=== PATIENT | female | born 1980 | race Caucasian/White ===

== ENCOUNTER 2016-10-07 22:30 | Emergency (ER) | payer OTHER ==
[2016-10-07 23:11] LABS: BASOPHILS 0.2 % (0.0-2.0); HEMATOCRIT 40.3 % (36.0-48.0); HEMOGLOBIN 13.3 g/dL (12-16); IMMATURE GRANULOCYTES 0.3 % (0-5); MCH 25.7 pg (26.0-34.0); MCV 77.9 fL (80.0-100.0); MEAN PLATELET VOLUME 10.8 fL (7.4-10.4); MONOCYTES 6.2 % (2-11); NEUTROPHILS 62.3 % (40-80); PLATELET COUNT 206 10x3/uL (130-400); RBC 5.17 10x6/uL (4.00-5.40); RDW 15.7 % (11.5-14.5); WBC 6.4 10x3/uL (4.8-10.8)
[2016-10-07 23:20] LABS: APTT 26.4 SECONDS (22.8-39.4); INR 1.54 (0.85-1.17); PROTIME 18.4 SECONDS (11.6-15.0)
[2016-10-07 23:21] LABS: D-DIMER-QUANTITATIVE 0.33 ug/mLFEU (0.20-0.54)
[2016-10-07 23:25] LABS: ALBUMIN 3.7 g/dL (3.4-5.0); ALKALINE PHOSPHATASE 110 U/L (46-116); ALT (SGPT) 38 U/L (10-68); BILIRUBIN - TOTAL 0.35 mg/dL (0.2-1.3); CALC OSMOLALITY 286 mosm/kg (275-300); CALCIUM 9.1 mg/dL (8.5-10.1); CHLORIDE - SERUM 99 mmol/L (98-107); CREATININE - SERUM 1.1 mg/dL (0.6-1.3); GLUCOSE 297 mg/dL (74-106); POTASSIUM - SERUM 3.6 mmol/L (3.5-5.1); PROTEIN - SERUM 7.9 g/dL (6.4-8.2); SODIUM 138 mmol/L (136-145); UREA NITROGEN 12 mg/dL (7-18); eGFR NON AFRICAN AMERICAN 60 mL/min (90-120)
[2016-10-07 23:32] LABS: CREATINE KINASE 42 UL (21-215); PRO BNP 182 pg/mL (0-125)
[2016-10-07 23:34] LABS: TROPONIN-I < 0.017 ng/mL (0.000-0.060)
[2016-10-08 00:04] LABS: APPEARANCE CLOUDY (CLEAR); COLOR YELLOW (YELLOW)
[2016-10-08 00:05] LABS: BACTERIA MANY /hpf (NONE SEEN); BILIRUBIN NEGATIVE (NEGATIVE); EPITHELIAL CELLS 25-50 /hpf (0-5); GLUCOSE 1000 mg/dL (NEGATIVE); HYALINE CAST RARE /lpf (NONE SEEN); KETONE SMALL mg/dL (NEGATIVE); LEUKOCYTE ESTERASE TRACE (NEGATIVE); MUCUS >1+ /lpf (NONE SEEN); NITRITE NEGATIVE (NEGATIVE); PROTEIN TRACE mg/dL (NEGATIVE); RED CELLS - URINE OCC /hpf (0-5); UROBILINOGEN NORMAL (NORMAL); WHITE CELLS - URINE 0-5 /hpf (0-5); YEAST >1+ /hpf (NONE SEEN)
[2016-10-08 00:08] LABS: UDS - AMPHET NEGATIVE QUAL (NEGATIVE); UDS - BARB NEGATIVE QUAL (NEGATIVE); UDS - BENZO POSITIVE QUAL (NEGATIVE); UDS - COCAINE NEGATIVE QUAL (NEGATIVE); UDS - METH NEGATIVE QUAL (NEGATIVE); UDS - OPIATE POSITIVE QUAL (NEGATIVE); UDS - PCP NEGATIVE QUAL (NEGATIVE); UDS - THC NEGATIVE QUAL (NEGATIVE)
== END 2016-10-08 00:24 | disposition home or self-care (01) ==
LOC: D.ER 22:30
PROVIDERS: Family Medicine
DX: R07.89 Other chest pain (principal); D68.61 Antiphospholipid syndrome; E11.9 Type 2 diabetes mellitus without complications; Z79.4 Long term (current) use of insulin; R00.0 Tachycardia, unspecified

== ENCOUNTER 2016-12-08 21:17 | Emergency (ER) | payer OTHER ==
[2016-12-08 22:33] LABS: BASOPHILS 0.2 % (0.0-2.0); EOSINOPHILS 3.2 % (0-7); HEMATOCRIT 37.2 % (36.0-48.0); HEMOGLOBIN 11.7 g/dL (12-16); IMMATURE GRANULOCYTES 0.7 % (0-5); LYMPHOCYTES 38.7 % (15-50); MCH 24.2 pg (26.0-34.0); MCHC 31.5 g/dL (31.0-37.0); MCV 76.9 fL (80.0-100.0); MEAN PLATELET VOLUME 10.3 fL (7.4-10.4); MONOCYTES 6.7 % (2-11); NEUTROPHILS 50.5 % (40-80); PLATELET COUNT 219 10x3/uL (130-400); RBC 4.84 10x6/uL (4.00-5.40); RDW 17.6 % (11.5-14.5); WBC 4.3 10x3/uL (4.8-10.8)
[2016-12-08 22:43] LABS: APTT 32.8 SECONDS (22.8-39.4); INR 1.99 (0.85-1.17); PROTIME 22.6 SECONDS (11.6-15.0)
[2016-12-08 22:45] LABS: D-DIMER-QUANTITATIVE < 0.27 ug/mLFEU (0.20-0.54)
[2016-12-08 22:46] LABS: ALBUMIN 3.3 g/dL (3.4-5.0); ALKALINE PHOSPHATASE 124 U/L (46-116); ALT (SGPT) 43 U/L (10-68); BILIRUBIN - TOTAL 0.29 mg/dL (0.2-1.3); CALC OSMOLALITY 284 mosm/kg (275-300); CALCIUM 8.7 mg/dL (8.5-10.1); CARBON DIOXIDE 26.2 mmol/L (21.0-32.0); CHLORIDE - SERUM 101 mmol/L (98-107); CREATININE - SERUM 0.8 mg/dL (0.6-1.3); GLUCOSE 248 mg/dL (74-106); POTASSIUM - SERUM 4.1 mmol/L (3.5-5.1); PROTEIN - SERUM 7.4 g/dL (6.4-8.2); SODIUM 139 mmol/L (136-145); UREA NITROGEN 10 mg/dL (7-18); eGFR NON AFRICAN AMERICAN 87 mL/min (90-120)
[2016-12-08 22:49] LABS: CREATINE KINASE 61 UL (21-215)
[2016-12-08 22:56] LABS: TROPONIN-I < 0.017 ng/mL (0.000-0.060)
== END 2016-12-08 23:39 | disposition home or self-care (01) ==
LOC: D.ER 21:17
PROVIDERS: Family Medicine
DX: R07.89 Other chest pain (principal); E11.9 Type 2 diabetes mellitus without complications; Z79.4 Long term (current) use of insulin

== ENCOUNTER 2017-04-14 13:02 | Inpatient (IN) | payer OTHER ==
[~2017-04-14] VITALS: Ht 175.3 cm; Wt 141.4 kg
[2017-04-14 14:30] LABS: BASOPHILS 0.4 % (0-2); EOSINOPHILS 3.8 % (0-7); HEMOGLOBIN 11.8 g/dL (12-16); IMMATURE GRANULOCYTES 0.4 % (0-5); LYMPHOCYTES 32.1 % (15-50); MCH 24.6 pg (26.0-34.0); MCHC 32.8 g/dL (31.0-37.0); MCV 75.2 fL (80.0-100.0); MEAN PLATELET VOLUME 10.4 fL (7.4-10.4); MONOCYTES 5.9 % (2-11); NEUTROPHILS 57.4 % (40-80); RBC 4.79 10x6/uL (4.00-5.40); RDW 16.5 % (11.5-14.5); WBC 4.8 10x3/uL (4.8-10.8)
[2017-04-14 14:31] LABS: PLATELET COUNT 148 10x3/uL (130-400)
[2017-04-14 14:38] LABS: APTT 40.5 SECONDS (22.8-39.4); INR 3.11 (0.85-1.17); PROTIME 32.3 SECONDS (11.6-15.0)
[2017-04-14 14:39] LABS: D-DIMER-QUANTITATIVE 1.38 ug/mLFEU (0.20-0.54)
[2017-04-14 14:44] LABS: ALBUMIN 3.4 g/dL (3.4-5.0); ALKALINE PHOSPHATASE 116 U/L (46-116); ALT (SGPT) 28 U/L (10-68); BILIRUBIN - TOTAL 0.25 mg/dL (0.2-1.3); CALC OSMOLALITY 279 mosm/kg (275-300); CARBON DIOXIDE 26.5 mmol/L (21.0-32.0); CHLORIDE - SERUM 99 mmol/L (98-107); CREATININE - SERUM 0.9 mg/dL (0.6-1.3); GLUCOSE 245 mg/dL (74-106); POTASSIUM - SERUM 4.2 mmol/L (3.5-5.1); PROTEIN - SERUM 7.4 g/dL (6.4-8.2); SODIUM 136 mmol/L (136-145); UREA NITROGEN 13 mg/dL (7-18); eGFR NON AFRICAN AMERICAN 76 mL/min (90-120)
[2017-04-14 14:46] LABS: CREATINE KINASE 71 UL (21-215)
[2017-04-14 14:47] LABS: TROPONIN-I < 0.017 ng/mL (0.000-0.060)
[2017-04-14 15:00] LABS: APPEARANCE CLOUDY (CLEAR); BILIRUBIN NEGATIVE (NEGATIVE); COLOR YELLOW (YELLOW); GLUCOSE 1000 mg/dL (NEGATIVE); KETONE NEGATIVE (NEGATIVE); LEUKOCYTE ESTERASE TRACE (NEGATIVE); NITRITE NEGATIVE (NEGATIVE); PROTEIN NEGATIVE (NEGATIVE); UROBILINOGEN NORMAL (NORMAL)
[2017-04-14 15:12] LABS: BACTERIA FEW /hpf (NONE SEEN); RED CELLS - URINE OCC /hpf (0-5)
[2017-04-14] MEDS ORDERED: KLONOPIN1 MG PO (20:29)
[2017-04-14] MEDS ORDERED: VISTARIL50 MG PO (20:32)
[2017-04-14] MEDS ORDERED: LAMICTAL XR200 MG PO (20:32)
[2017-04-14] MEDS ORDERED: CYCLOBENZAPRINE10 MG PO (20:33)
[2017-04-14] MEDS ORDERED: SEROQUEL400 MG PO (20:36)
[2017-04-14] MEDS ORDERED: XANAX1 MG PO (20:38)
[2017-04-14] MEDS ORDERED: COUMADIN4 MG PO ×2 (20:39)
[2017-04-14] MEDS ORDERED: DESERYL100 MG PO (20:39)
[2017-04-14] MEDS ORDERED: COUMADIN10 MG PO (20:40)
[2017-04-14] MEDS ORDERED: LAMICTAL200 MG PO (20:41)
[2017-04-14] MEDS ORDERED: LIPITOR40 MG PO (20:43)
[2017-04-14] MEDS ORDERED: LANTUS SOL100 UNIT/1 SC (20:44)
[2017-04-14] MEDS ORDERED: HUMALOG 30100 UNITS/ SC (20:45)
[2017-04-14] MEDS ORDERED: NEXIUM40 MG PO (20:45)
[2017-04-14 21:34] LABS: HEMOGLOBIN A1C 8.7 % (4.8-6.0)
[2017-04-14 22:51] VITALS: BP 136/90; Ht 175.3 cm; Wt 141.4 kg
--- NOTE | 2017-04-14 23:25 | NUR ---
PT ARRIVED VIA STRETCHER FROM AT 2000 HRS. NO DISTRESS NOTED. VSS. SR PER CM HR 101. IV TO [facility] SL. [facility] CALLED FOR [place]ER[place]. DR. ROMANO HERE AT 2020HRS TO [place]. ADMISSION ASSESSMENT, HISTORY AND HOME MEDS DONE BY 2305 HRS. NORCO 7.5MG PO GIVEN FOR C/O CHEST PAIN WITH INSPIRATION AT 2312 HRS. WILL CONTINUE TO MONITOR. SR UP X2, CALL LIGHT WTIHIN REACH.
[2017-04-15] VITALS: BP 119/74
--- NOTE | 2017-04-15 00:47 | NUR ---
PT STATES NORCO HAS NOT TOUCHED HER PAIN. Marisela SAMS [employer] DRESSING MACHINE FEEDER NOTIFIED.
--- NOTE | 2017-04-15 01:19 | NUR ---
DILAUDID 1MG SIVP GIVEN TO RAC FOR C/O CHEST PAIN 03/25. WILL CONTINUE TO MONITOR.
--- NOTE | 2017-04-15 02:47 | NUR ---
PT WATCHING TV. DENIES ANY DISCOMFORT. WILL CONTINUE TO MONITOR.
[2017-04-15 04:00] VITALS: BP 119/83
--- NOTE | 2017-04-15 05:21 | NUR ---
PT RESTING WITH EYES CLOSED. RESP EVEN AND REGULAR. SR UP X2, CALL LIGHT WITHIN REACH.
--- NOTE | 2017-04-15 06:56 | NUR ---
VSS THROUGHOUT NGIHT. SR/ST PER CM. PT STATED IV DILAUDID RELIEVED PAIN,. AM FSBS 259. 16 UNITS HUMALOG GIVEN SUB-Q TO UPPER R ARM. NEEDS MET; WILL CONTINUE TO MONITOR.
--- NOTE | 2017-04-15 07:30 | NUR ---
RECIEVED PT DURING WALKING ROUNDS. PT RESTING IN BED WITH COMPLAINTS OF PAIN OF A 7 ON A SCALE OF 1-10. PAIN MEDICATION TO BE GIVEN PER ORDER. ASSESSMENT DONE PER FLOWSHEET. BED IN LOW POSITION AND CALL LIGHT WITHIN REACH. WILL CONTINUE TO MONITOR.
--- NOTE | 2017-04-15 07:30 | NUR ---
RECIEVED PT DURING WALKING ROUNDS. PT RESTING IN BED WITH NO COMPLAINTS OF PAIN OR DISCOMFORT AT THIS TIME. ASSESSMENT DONE PER FLOWSHEET. BED IN LOW POSITION AND CALL LIGHT WITHIN REACH. WILL CONTINUE TO MONITOR.
[2017-04-15 08:24] VITALS: BP 101/83
[2017-04-15 10:21] LABS: BASOPHILS 0.2 % (0-2); EOSINOPHILS 5.6 % (0-7); HEMATOCRIT 35.6 % (36.0-48.0); HEMOGLOBIN 11.5 g/dL (12-16); IMMATURE GRANULOCYTES 0.2 % (0-5); LYMPHOCYTES 42.3 % (15-50); MCH 24.5 pg (26.0-34.0); MCHC 32.3 g/dL (31.0-37.0); MCV 75.9 fL (80.0-100.0); MEAN PLATELET VOLUME 10.7 fL (7.4-10.4); MONOCYTES 7.7 % (2-11); RBC 4.69 10x6/uL (4.00-5.40); RDW 16.5 % (11.5-14.5); WBC 4.3 10x3/uL (4.8-10.8)
[2017-04-15 10:26] LABS: PLATELET COUNT 188 10x3/uL (130-400)
[2017-04-15 10:35] LABS: INR 2.65 (0.85-1.17); PROTIME 28.4 SECONDS (11.6-15.0)
[2017-04-15 10:41] LABS: ALBUMIN 3.2 g/dL (3.4-5.0); ALKALINE PHOSPHATASE 110 U/L (46-116); ALT (SGPT) 28 U/L (10-68); BILIRUBIN - TOTAL 0.24 mg/dL (0.2-1.3); CALC OSMOLALITY 276 mosm/kg (275-300); CALCIUM 8.6 mg/dL (8.5-10.1); CARBON DIOXIDE 29.7 mmol/L (21.0-32.0); CHLORIDE - SERUM 98 mmol/L (98-107); CREATININE - SERUM 0.8 mg/dL (0.6-1.3); GLUCOSE 164 mg/dL (74-106); POTASSIUM - SERUM 3.6 mmol/L (3.5-5.1); PROTEIN - SERUM 7.1 g/dL (6.4-8.2); SODIUM 137 mmol/L (136-145); UREA NITROGEN 11 mg/dL (7-18); eGFR NON AFRICAN AMERICAN 87 mL/min (90-120)
[2017-04-15 12:24] VITALS: BP 107/89
[2017-04-15 16:13] VITALS: BP 112/76
[2017-04-15 19:00] VITALS: BP 114/81
--- NOTE | 2017-04-15 19:20 | NUR ---
RECIEVED SHIFT REPORT. PT IS LYING IN BED. ALERT AND ORIENTED AND ABLE TO VERBALIZE NEEDS. IV IS PATENT AND FLUIDS ARE RUNNING PER ORDER. PT IS AMBULATORY BUT WAS INSTRUCTED TO CALL FOR ANY ASSISTANCE NEEDED. PT STATES PAIN IS 7/10. NO NEEDS ARE VERBALIZED AT THIS TIME. IS AT THE BEDSIDE. WILL CONTINUE TO MONITOR. SIDE RAILS ARE UP X 2. BED IS IN LOWEST POSITION. CALL LIGHT IS WITHIN REACH.
--- NOTE | 2017-04-15 20:25 | NUR ---
SHIFT ASSESSMENT COMPLETED. NIGHT MEDS GIVEN WITH NO PROBLEMS. PT RECIEVED 8 UNITS INSULIN PER SLIDING SCALE FOR ZVRG=[id number]. NO NEEDS ARE VOICED. WILL MONITOR. SIDE RAILS X 2. BED LOW. CALL LIGHT IN REACH.
[2017-04-16] VITALS: BP 109/69
[2017-04-16 04:00] VITALS: BP 139/35
[2017-04-16 04:55] LABS: BASOPHILS 0.4 % (0-2); EOSINOPHILS 3.2 % (0-7); HEMATOCRIT 35.5 % (36.0-48.0); IMMATURE GRANULOCYTES 0.4 % (0-5); LYMPHOCYTES 43.7 % (15-50); MCH 24.4 pg (26.0-34.0); MEAN PLATELET VOLUME 10.7 fL (7.4-10.4); NEUTROPHILS 44.3 % (40-80); RDW 16.8 % (11.5-14.5)
[2017-04-16 04:56] LABS: MCV 78.9 fL (80.0-100.0); PLATELET COUNT 121 10x3/uL (130-400); WBC 5.4 10x3/uL (4.8-10.8)
[2017-04-16 06:47] LABS: INR 2.14 (0.85-1.17)
[2017-04-16 06:50] LABS: ALBUMIN 2.9 g/dL (3.4-5.0); ALKALINE PHOSPHATASE 97 U/L (46-116); ALT (SGPT) 25 U/L (10-68); BILIRUBIN - TOTAL 0.33 mg/dL (0.2-1.3); CALC OSMOLALITY 280 mosm/kg (275-300); CALCIUM 8.5 mg/dL (8.5-10.1); CARBON DIOXIDE 31.7 mmol/L (21.0-32.0); CHLORIDE - SERUM 101 mmol/L (98-107); CREATININE - SERUM 0.9 mg/dL (0.6-1.3); GLUCOSE 160 mg/dL (74-106); PROTEIN - SERUM 6.4 g/dL (6.4-8.2); SODIUM 139 mmol/L (136-145); UREA NITROGEN 13 mg/dL (7-18); eGFR NON AFRICAN AMERICAN 76 mL/min (90-120)
--- NOTE | 2017-04-16 07:15 | NUR ---
RECIEVED PT DURING WALKING ROUNDS. PT RESTING IN BED WITH COMPLAINTS OF PAIN OF A 6 ON A SCALE OF 1-10. NO MEDICATION TO BE GIVEN AT THIS TIME. ASSESSMENT DONE PER FLOWSHEET. BED IN LOW POSITION AND CALL LIGHT WITHIN REACH. WILL CONTINUE TO MONITOR.
--- NOTE | 2017-04-16 08:07 | NUR ---
Patient Name: KIRSTEN TURNER Admission Status: ER Accout number: [id number] Admission Date: 04-14-2017 : 1980 Admission Diagnosis: Attending: JORGE Current LOS: 2 Anticipated DC Date: 04-19-2017 Planned Disposition: Home Primary Insurance: [employer] PPO Discharge Planning Comments: CM MET WITH PATIENT AND SPOUSE (JUSTINE) REGARDING D/C NEEDS AND PLANS. PATIENT STATED HER SPOUSE WILL DRIVE HER HOME AT DISCHARGE. PATIENT STATED THERE ARE NO STEPS TO ENTER HOME AND 1 FLIGHT OF STAIRS W/RAILS INSIDE. PATIENT IS INDEPENDENT WITH HER CARE AND HAS A GLUCOMETER AT HOME AND CHECKS SUGARS DAILY. PATIENTS PCP IS DR. PIERSON AND USES [facility] FOR HER PHARMACY. PATIENT REFUSED HOME HEALTH AT THIS TIME. CM WILL CONTINUE TO FOLLOW PATIENT WITH D/C NEEDS AND PLANS. PCP DR. PIERSON [facility]- [phone] JUSTINE (SPOUSE) [phone] Horticulture Superintendent: Sheila Jolley Is the patient Alert and Oriented? Yes 0 * How many steps to enter\exit or inside your home? 1 FLIGHT 0 * PCP DR. PIERSON 0 * Pharmacy [facility] 0 * Preadmission Environment Home with Family 0 * ADLs Independent 0 * Equipment Glucometer 0 * List name and contact numbers for known caregivers / representatives who currently or will assist patient after discharge: JUSTINE (SPOUSE) [phone] 0 * Community resources currently utilized None 0 * Additional services required to return to the preadmission environment? Yes 0 * Can the patient safely return to the preadmission environment? Yes 0 * Has this patient been hospitalized within the prior 30 days at any hospital? Yes 0 Grand Total: 0
[2017-04-16 08:13] VITALS: BP 113/82
[2017-04-16 11:35] VITALS: BP 121/71
[2017-04-16 16:29] VITALS: BP 126/82
[2017-04-16 19:00] VITALS: BP 115/67
--- NOTE | 2017-04-16 19:20 | NUR ---
RECIEVED SHIFT REPORT. PT IS LYING IN BED. ALERT AND ORIENTED AND ABLE TO VERBALIZE NEEDS. IV IS PATENT AND SALINE LOC AT THIS TIME. PT IS AMBULATORY BUT WAS INSTRUCTED TO CALL FOR ANY ASSISTANCE NEEDED. PT STATES PAIN IS 8/10. NO NEEDS ARE VERBALIZED AT THIS TIME. WILL CONTINUE TO MONITOR. IS AT THE BEDSIDE. SIDE RAILS ARE UP X 2. BED IS IN LOWEST POSITION. CALL LIGHT IS WITHIN REACH.
--- NOTE | 2017-04-16 20:37 | NUR ---
PATIENT STATED SHE HAS NOT SEEN TODAY. TOLD PATIENT I WOULD LOOK AT 'S NOTE TO SEE IF IT SAYS ANYTHING INDICATING THAT SHE IS NOT COMING TODAY.
--- NOTE | 2017-04-16 21:12 | NUR ---
SHIFT ASSESSMENT COMPLETED. NIGHT MEDS GIVEN WITH NO PROBLEMS. PT RECIEVED NO INSULIN PER SLIDING SCALE FOR [id number]=[id number]. NO NEEDS ARE VOICED. WILL MONITOR. SIDE RAILS X 2. BED IS LOW. CALL LIGHT IN REACH.
[2017-04-17 00:55] VITALS: BP 132/86
[2017-04-17 04:00] VITALS: BP 113/86
[2017-04-17 05:30] LABS: BASOPHILS 0.4 % (0-2); EOSINOPHILS 2.5 % (0-7); HEMATOCRIT 36.1 % (36.0-48.0); HEMOGLOBIN 11.8 g/dL (12-16); IMMATURE GRANULOCYTES 0.6 % (0-5); MCH 24.7 pg (26.0-34.0); MCHC 32.7 g/dL (31.0-37.0); MEAN PLATELET VOLUME 11.2 fL (7.4-10.4); MONOCYTES 8.6 % (2-11); NEUTROPHILS 49.9 % (40-80); RBC 4.78 10x6/uL (4.00-5.40); RDW 16.4 % (11.5-14.5); WBC 5.2 10x3/uL (4.8-10.8)
[2017-04-17 05:32] LABS: MCV 75.5 fL (80.0-100.0); PLATELET COUNT 188 10x3/uL (130-400)
[2017-04-17 05:51] LABS: INR 1.49 (0.85-1.17)
[2017-04-17 05:58] LABS: ALBUMIN 3.3 g/dL (3.4-5.0); ALKALINE PHOSPHATASE 107 U/L (46-116); ALT (SGPT) 30 U/L (10-68); CALC OSMOLALITY 275 mosm/kg (275-300); CALCIUM 9.4 mg/dL (8.5-10.1); CARBON DIOXIDE 28.5 mmol/L (21.0-32.0); CHLORIDE - SERUM 98 mmol/L (98-107); CREATININE - SERUM 0.8 mg/dL (0.6-1.3); GLUCOSE 173 mg/dL (74-106); POTASSIUM - SERUM 3.9 mmol/L (3.5-5.1); PROTEIN - SERUM 7.2 g/dL (6.4-8.2); SODIUM 136 mmol/L (136-145); UREA NITROGEN 12 mg/dL (7-18); eGFR NON AFRICAN AMERICAN 87 mL/min (90-120)
[2017-04-17 07:39] VITALS: BP 123/78
--- NOTE | 2017-04-17 10:49 | NUR ---
DR. GEE OFFICE CALLED REGARDING COUMADIN RESTART. SPOKE WITH JC, DR. ALVAREZ NURSE, I ASKED "[facility]'S NURSE PRACTITIONER WAS WANTING TO KNOW IF MRS. GREGGS COUMADIN NEEDED TO BE RESTARTED ALONG WITH HER LOVENOX." JC STATED, "NOPE WE ARE SURE."
[2017-04-17 12:17] VITALS: BP 113/78
--- NOTE | 2017-04-17 14:56 | NUR ---
AWAKE AND ALERT. ORIENTED X3. NO C/O AT THIS TIME. SITTING UP IN BED RESTING. VISITOR AT BEDSIDE. LUNGS ARE DIMINISHED THROUGHOUT LUNG GUSMAN. REPORTS PAIN ON LEFT WORSE THAN ON THE RIGHT. IMPROVED AT THIS TIME. DENIES NEEDS. REPORTS PAIN MEDS EFFECTIVE.
[2017-04-17 15:35] VITALS: BP 106/64
[2017-04-17 19:00] VITALS: BP 145/74
--- NOTE | 2017-04-17 19:20 | NUR ---
RECIEVED SHIFT REPORT. PT IS LYING IN BED. ALERT AND ORIENTED AND ABLE TO VERBALIZE NEEDS. IV IS PATENT AND SALINE LOC AT THIS TIME. PT IS AMBULATORY BUT WAS INSTRUCTED TO CALL FOR ANY ASSISTANCE NEEDED. PT STATES PAIN IS 8/10. NO NEEDS ARE VERBALIZED AT THIS TIME. WILL CONTINUE TO MONITOR. SIDE RAILS X 2. BED LOW. CALL LIGHT IN REACH.
--- NOTE | 2017-04-17 20:15 | NUR ---
SHIFT ASSESSMENT COMPLETED. NIGHT MEDS GIVEN WITH NO PROBLEMS. PT RECIEVED 12 UNITS INSULIN PER SLIDING SCALE FOR [id number]. PT C/O PAIN 04/25. ADMINISTERED PRESCRIBED PRN NORCO AND TORADOL PER ORDER. DENIES FURTHER NEEDS. WILL MONITOR. SIDE RAILS X 2. BED LOW. CALL LIGHT IN REACH.
[2017-04-18 04:00] VITALS: BP 111/68
[2017-04-18 06:10] LABS: BASOPHILS 0.2 % (0-2); EOSINOPHILS 3.7 % (0-7); HEMATOCRIT 35.4 % (36.0-48.0); HEMOGLOBIN 11.4 g/dL (12-16); IMMATURE GRANULOCYTES 0.4 % (0-5); LYMPHOCYTES 41.7 % (15-50); MCH 24.5 pg (26.0-34.0); MCHC 32.2 g/dL (31.0-37.0); MCV 76.1 fL (80.0-100.0); MEAN PLATELET VOLUME 10.6 fL (7.4-10.4); MONOCYTES 7.9 % (2-11); NEUTROPHILS 46.1 % (40-80); PLATELET COUNT 201 10x3/uL (130-400); RBC 4.65 10x6/uL (4.00-5.40); RDW 16.4 % (11.5-14.5); WBC 5.2 10x3/uL (4.8-10.8)
[2017-04-18 06:29] LABS: INR 1.12 (0.85-1.17); PROTIME 14.3 SECONDS (11.6-15.0)
[2017-04-18 06:38] LABS: ALBUMIN 3.2 g/dL (3.4-5.0); ALKALINE PHOSPHATASE 105 U/L (46-116); ALT (SGPT) 37 U/L (10-68); BILIRUBIN - TOTAL 0.53 mg/dL (0.2-1.3); CALC OSMOLALITY 275 mosm/kg (275-300); CALCIUM 9.3 mg/dL (8.5-10.1); CARBON DIOXIDE 30.4 mmol/L (21.0-32.0); CHLORIDE - SERUM 99 mmol/L (98-107); CREATININE - SERUM 0.9 mg/dL (0.6-1.3); GLUCOSE 161 mg/dL (74-106); PROTEIN - SERUM 7.1 g/dL (6.4-8.2); SODIUM 137 mmol/L (136-145); UREA NITROGEN 11 mg/dL (7-18); eGFR NON AFRICAN AMERICAN 76 mL/min (90-120)
--- NOTE | 2017-04-18 07:23 | NUR ---
AWAKE AND ALERT AT THIS TIME. RESPIRATIONS EVEN AND NON LABORED. DENIES PAIN OR NEEDS AT THIS TIME. CALL LIGHT IN REACH, WILL CONTINUE WITH PLAN OF CARE.
[2017-04-18 08:31] VITALS: BP 129/73
[2017-04-18] MEDS ORDERED: LOVENOX120 MG/0.8 SC (11:38)
[2017-04-18] MEDS ORDERED: TORADOL10 MG PO (11:39)
[2017-04-18] MEDS ORDERED: NORCO 7.5/325 T1 TA1 PO (11:40)
[2017-04-18 12:00] VITALS: BP 101/68
--- NOTE | 2017-04-18 13:37 | NUR ---
PATIENT IS DISCHARGING HOME ON LOVENOX / WAITING APPROVAL FROM INSURANCE. LOVENOX 120 MG X 3 DOSES WAS APPROVED BY [facility] FOR PATIENT AT DISCHARGE. PATIENT REFUSED HOME HEALTH. NURSE TAUGHT PATIENT INJECTION TECHNIQUE BEFORE DISCHARGE.
--- NOTE | 2017-04-18 13:38 | NUR ---
PRN NORCO ADMINISTERED FOR PAIN. INSTUCTED PT ON PROPER USE OF LOVENOX. IV TO RIGHT AC D/C WITH CATH TIP INTACT. D/C INSTRUCTION REVIEWED AND PT DENIES QUESTIONS OR CONCERNS. WILL D/C HOME WITH SPOUSE.
--- NOTE | 2017-04-18 13:41 | NUR ---
PATIENT IS DISCHARGING HOME ON LOVENOX / WAITING APPROVAL FROM INSURANCE. LOVENOX 120 MG X 3 DOSES (38.91) WAS APPROVED BY [facility] FOR PATIENT AT DISCHARGE. PATIENT REFUSED HOME HEALTH. NURSE TAUGHT PATIENT INJECTION TECHNIQUE BEFORE DISCHARGE.
== END 2017-04-18 13:58 | disposition home or self-care (01) | DRG 176 ==
LOC: D.ER 13:02 → D.MS 18:00
PROVIDERS: Family Medicine; Nurse Practitioner Family; ADMIT Family Medicine
DX: I26.99 Other pulmonary embolism without acute cor pulmonale (principal); D68.61 Antiphospholipid syndrome; Z68.42 Body mass index [BMI] 45.0-49.9, adult; E11.65 Type 2 diabetes mellitus with hyperglycemia; Z79.4 Long term (current) use of insulin; J45.909 Unspecified asthma, uncomplicated; F31.9 Bipolar disorder, unspecified; E66.9 Obesity, unspecified; E78.5 Hyperlipidemia, unspecified; M32.9 Systemic lupus erythematosus, unspecified; Z79.01 Long term (current) use of anticoagulants; Z91.19 Patient's noncompliance with other medical treatment and regimen

== ENCOUNTER 2017-05-12 21:38 | Emergency (ER) | payer MEDICARE ==
[2017-04-14 22:51] VITALS: BMI 46.0
[~2017-05-12 21:38] MED LIST: COUMADIN10 MG PO; COUMADIN4 MG PO; CYCLOBENZAPRINE10 MG PO; DESERYL100 MG PO; HUMALOG 30100 UNITS/ SC; KLONOPIN1 MG PO; LAMICTAL XR200 MG PO; LAMICTAL200 MG PO; LANTUS SOL100 UNIT/1 SC; LIPITOR40 MG PO; LOVENOX120 MG/0.8 SC; NEXIUM40 MG PO; NORCO 7.5/325 T1 TA1 PO; SEROQUEL400 MG PO; TORADOL10 MG PO; VISTARIL50 MG PO; XANAX1 MG PO
[2017-05-12 22:14] LABS: BASOPHILS 0.3 % (0-2); EOSINOPHILS 2.8 % (0-7); HEMATOCRIT 37.4 % (36.0-48.0); HEMOGLOBIN 12.4 g/dL (12-16); IMMATURE GRANULOCYTES 0.7 % (0-5); MCHC 33.2 g/dL (31.0-37.0); MCV 78.4 fL (80.0-100.0); MEAN PLATELET VOLUME 10.3 fL (7.4-10.4); MONOCYTES 6.1 % (2-11); NEUTROPHILS 54.1 % (40-80); PLATELET COUNT 209 10x3/uL (130-400); RBC 4.77 10x6/uL (4.00-5.40); RDW 16.8 % (11.5-14.5); WBC 6.1 10x3/uL (4.8-10.8)
[2017-05-12 22:23] LABS: APTT 27.7 SECONDS (22.8-39.4); INR 0.89 (0.85-1.17); PROTIME 11.8 SECONDS (11.6-15.0)
[2017-05-12 22:24] LABS: D-DIMER-QUANTITATIVE 0.4 ug/mLFEU (0.20-0.54)
[2017-05-12 22:31] LABS: ALBUMIN 3.5 g/dL (3.4-5.0); ALKALINE PHOSPHATASE 103 U/L (46-116); ALT (SGPT) 33 U/L (10-68); CALC OSMOLALITY 281 mosm/kg (275-300); CALCIUM 8.8 mg/dL (8.5-10.1); CARBON DIOXIDE 27.5 mmol/L (21.0-32.0); CHLORIDE - SERUM 100 mmol/L (98-107); CREATININE - SERUM 1.1 mg/dL (0.6-1.3); GLUCOSE 211 mg/dL (74-106); POTASSIUM - SERUM 3.9 mmol/L (3.5-5.1); PROTEIN - SERUM 7.5 g/dL (6.4-8.2); SODIUM 137 mmol/L (136-145); TROPONIN-I < 0.017 ng/mL (0.000-0.060); UREA NITROGEN 18 mg/dL (7-18); eGFR NON AFRICAN AMERICAN 60 mL/min (90-120)
== END 2017-05-13 00:45 | disposition home or self-care (01) ==
LOC: D.ER 21:38
PROVIDERS: Emergency Medicine
DX: I27.82 Chronic pulmonary embolism (principal); Z79.01 Long term (current) use of anticoagulants; D68.61 Antiphospholipid syndrome; E11.9 Type 2 diabetes mellitus without complications; Z79.4 Long term (current) use of insulin; R06.00 Dyspnea, unspecified; R05 Cough; R06.02 Shortness of breath; R00.0 Tachycardia, unspecified

== ENCOUNTER 2017-05-14 13:16 | Emergency (ER) | payer MEDICARE ==
[2017-04-14 22:51] VITALS: BMI 46.0
[2017-05-14 14:05] LABS: BASOPHILS 0.2 % (0-2); EOSINOPHILS 3.5 % (0-7); HEMOGLOBIN 11.9 g/dL (12-16); IMMATURE GRANULOCYTES 0.4 % (0-5); LYMPHOCYTES 38.3 % (15-50); MCH 25.1 pg (26.0-34.0); MCHC 32.2 g/dL (31.0-37.0); MCV 78.1 fL (80.0-100.0); MEAN PLATELET VOLUME 10.4 fL (7.4-10.4); MONOCYTES 5.4 % (2-11); NEUTROPHILS 52.2 % (40-80); PLATELET COUNT 192 10x3/uL (130-400); RBC 4.74 10x6/uL (4.00-5.40); RDW 16.9 % (11.5-14.5); WBC 4.8 10x3/uL (4.8-10.8)
[2017-05-14 14:16] LABS: APTT 33.1 SECONDS (22.8-39.4); PROTIME 13.1 SECONDS (11.6-15.0)
[2017-05-14 14:31] LABS: ALKALINE PHOSPHATASE 93 U/L (46-116); CALCIUM 9.3 mg/dL (8.5-10.1); CARBON DIOXIDE 23.3 mmol/L (21.0-32.0); CHLORIDE - SERUM 103 mmol/L (98-107); POTASSIUM - SERUM 4.1 mmol/L (3.5-5.1); PROTEIN - SERUM 7.3 g/dL (6.4-8.2); SODIUM 138 mmol/L (136-145); eGFR NON AFRICAN AMERICAN 67 mL/min (90-120)
[2017-05-14 14:32] LABS: ALT (SGPT) 42 U/L (10-68); CALC OSMOLALITY 277 mosm/kg (275-300); GLUCOSE 158 mg/dL (74-106); UREA NITROGEN 11 mg/dL (7-18)
[2017-05-14 14:35] LABS: TROPONIN-I < 0.017 ng/mL (0.000-0.060)
== END 2017-05-14 17:35 | disposition home or self-care (01) ==
LOC: D.ER 13:16
PROVIDERS: Emergency Medicine
DX: J20.9 Acute bronchitis, unspecified (principal)

== ENCOUNTER 2017-12-25 12:49 | Emergency (ER) | payer MEDICARE ==
[2017-04-14 22:51] VITALS: BMI 46.0
[2017-12-25 14:28] LABS: BASOPHILS 0.6 % (0-2); EOSINOPHILS 2.1 % (0-7); HEMATOCRIT 39.2 % (36.0-48.0); HEMOGLOBIN 13.1 g/dL (12-16); IMMATURE GRANULOCYTES 0.4 % (0-5); LYMPHOCYTES 29.2 % (15-50); MCH 25.4 pg (26.0-34.0); MCHC 33.4 g/dL (31.0-37.0); MCV 76.1 fL (80.0-100.0); MEAN PLATELET VOLUME 10.4 fL (7.4-10.4); MONOCYTES 6.6 % (2-11); NEUTROPHILS 61.1 % (40-80); PLATELET COUNT 217 10x3/uL (130-400); RBC 5.15 10x6/uL (4.00-5.40); RDW 16.1 % (11.5-14.5)
[2017-12-25 14:39] LABS: D-DIMER-QUANTITATIVE < 0.27 ug/mLFEU (0.20-0.54)
[2017-12-25 15:31] LABS: INR 2.02 (0.85-1.17); PROTIME 22.2 SECONDS (11.6-15.0)
== END 2017-12-25 16:35 | disposition home or self-care (01) ==
LOC: D.ER 12:49
PROVIDERS: Emergency Medicine
DX: R06.00 Dyspnea, unspecified (principal); Z86.711 Personal history of pulmonary embolism; Z79.01 Long term (current) use of anticoagulants; E11.9 Type 2 diabetes mellitus without complications; Z79.4 Long term (current) use of insulin; F17.200 Nicotine dependence, unspecified, uncomplicated

== ENCOUNTER 2018-01-03 16:33 | Emergency (ER) | payer MEDICARE ==
[2017-04-14 22:51] VITALS: BMI 46.0
[2018-01-03 17:43] LABS: BASOPHILS 0.3 % (0-2); EOSINOPHILS 1.9 % (0-7); HEMATOCRIT 37.3 % (36.0-48.0); HEMOGLOBIN 12.4 g/dL (12-16); IMMATURE GRANULOCYTES 0.2 % (0-5); LYMPHOCYTES 44.8 % (15-50); MCH 25.3 pg (26.0-34.0); MCHC 33.2 g/dL (31.0-37.0); MCV 76.1 fL (80.0-100.0); MEAN PLATELET VOLUME 10.7 fL (7.4-10.4); NEUTROPHILS 46.8 % (40-80); PLATELET COUNT 186 10x3/uL (130-400); RDW 16.1 % (11.5-14.5); WBC 6.5 10x3/uL (4.8-10.8)
[2018-01-03 17:44] LABS: INR 3.69 (0.85-1.17); PROTIME 35.8 SECONDS (11.6-15.0)
[2018-01-03 17:46] LABS: APTT 85.5 SECONDS (22.8-39.4); D-DIMER-QUANTITATIVE < 0.27 ug/mLFEU (0.20-0.54)
[2018-01-03 17:51] LABS: ALBUMIN 3.6 g/dL (3.4-5.0); ALKALINE PHOSPHATASE 111 U/L (46-116); ALT (SGPT) 28 U/L (10-68); BILIRUBIN - TOTAL 0.19 mg/dL (0.2-1.3); CALC OSMOLALITY 275 mosm/kg (275-300); CALCIUM 8.5 mg/dL (8.5-10.1); CARBON DIOXIDE 22.3 mmol/L (21.0-32.0); CHLORIDE - SERUM 101 mmol/L (98-107); CREATINE KINASE 118 UL (21-215); GLUCOSE 128 mg/dL (74-106); POTASSIUM - SERUM 3.5 mmol/L (3.5-5.1); PROTEIN - SERUM 7.5 g/dL (6.4-8.2); SODIUM 138 mmol/L (136-145); UREA NITROGEN 7 mg/dL (7-18); eGFR NON AFRICAN AMERICAN 67 mL/min (90-120)
[2018-01-03 17:52] LABS: TROPONIN-I < 0.017 ng/mL (0.000-0.060)
== END 2018-01-03 21:03 | disposition home or self-care (01) ==
LOC: D.ER 16:33
PROVIDERS: Emergency Medicine
DX: R07.89 Other chest pain (principal); D68.61 Antiphospholipid syndrome; I27.82 Chronic pulmonary embolism; Z79.01 Long term (current) use of anticoagulants; E11.9 Type 2 diabetes mellitus without complications; Z79.4 Long term (current) use of insulin; R00.0 Tachycardia, unspecified

== ENCOUNTER 2018-06-18 16:56 | Emergency (ER) | payer MEDICARE ==
[~2018-06-18] VITALS: Ht 175.3 cm; Wt 136.8 kg
[2018-06-18 17:12] VITALS: Ht 175.3 cm; Wt 136.8 kg
[2018-06-18 17:31] LABS: BASOPHILS 0.1 % (0-2); EOSINOPHILS 1.9 % (0-7); HEMATOCRIT 39.2 % (36.0-48.0); HEMOGLOBIN 13.6 g/dL (12-16); IMMATURE GRANULOCYTES 0.4 % (0-5); LYMPHOCYTES 28.9 % (15-50); MCH 27.5 pg (26.0-34.0); MCHC 34.7 g/dL (31.0-37.0); MCV 79.4 fL (80.0-100.0); MEAN PLATELET VOLUME 10.6 fL (7.4-10.4); MONOCYTES 5.3 % (2-11); NEUTROPHILS 63.4 % (40-80); PLATELET COUNT 195 10x3/uL (130-400); RBC 4.94 10x6/uL (4.00-5.40); RDW 16.1 % (11.5-14.5); WBC 7.6 10x3/uL (4.8-10.8)
[2018-06-18 17:42] LABS: APTT 28.6 SECONDS (22.8-39.4); INR 1.44 (0.85-1.17)
[2018-06-18 17:43] LABS: D-DIMER-QUANTITATIVE < 0.27 ug/mLFEU (0.20-0.54)
[2018-06-18 17:56] LABS: ALBUMIN 3.6 g/dL (3.4-5.0); ANION GAP 11.6 mmol/L (8-16); BILIRUBIN - TOTAL 0.31 mg/dL (0.2-1.3); CALCIUM 8.9 mg/dL (8.5-10.1); CARBON DIOXIDE 27.1 mmol/L (21.0-32.0); POTASSIUM - SERUM 3.7 mmol/L (3.5-5.1); PROTEIN - SERUM 7.7 g/dL (6.4-8.2)
[2018-06-18] MEDS ORDERED: VENTOLIN HFA18 GM INH (19:08)
[2018-06-18] MEDS ORDERED: VIBRAMYCIN 100100 MG PO (19:08)
[2018-06-18 19:54] VITALS: BP 133/93
== END 2018-06-18 19:54 | disposition home or self-care (01) ==
LOC: D.ER 16:56
PROVIDERS: Family Medicine
DX: R07.81 Pleurodynia (principal); Z79.01 Long term (current) use of anticoagulants; E11.9 Type 2 diabetes mellitus without complications; Z79.4 Long term (current) use of insulin; Z86.711 Personal history of pulmonary embolism; J18.9 Pneumonia, unspecified organism; K21.9 Gastro-esophageal reflux disease without esophagitis

== ENCOUNTER 2018-06-25 13:39 | Emergency (ER) | payer MEDICARE ==
[~2018-06-25] VITALS: Ht 175.3 cm; Wt 137.7 kg
[~2018-06-25 13:39] MED LIST changes: +VENTOLIN HFA18 GM INH; +VIBRAMYCIN 100100 MG PO
[2018-06-25 14:16] VITALS: Ht 175.3 cm; Wt 137.7 kg
[2018-06-25 14:46] LABS: BASOPHILS 0.3 % (0-2); EOSINOPHILS 2.6 % (0-7); HEMATOCRIT 40.5 % (36.0-48.0); HEMOGLOBIN 14.1 g/dL (12-16); IMMATURE GRANULOCYTES 0.9 % (0-5); LYMPHOCYTES 30.1 % (15-50); MCH 27.8 pg (26.0-34.0); MCHC 34.8 g/dL (31.0-37.0); MCV 79.7 fL (80.0-100.0); MEAN PLATELET VOLUME 11.3 fL (7.4-10.4); MONOCYTES 7.4 % (2-11); NEUTROPHILS 58.7 % (40-80); PLATELET COUNT 214 10x3/uL (130-400); RBC 5.08 10x6/uL (4.00-5.40); RDW 16.3 % (11.5-14.5); WBC 7.7 10x3/uL (4.8-10.8)
[2018-06-25 15:17] LABS: ALBUMIN 3.5 g/dL (3.4-5.0); ANION GAP 16.6 mmol/L (8-16); BILIRUBIN - TOTAL 0.26 mg/dL (0.2-1.3); CALCIUM 9.8 mg/dL (8.5-10.1); CARBON DIOXIDE 23.5 mmol/L (21.0-32.0); POTASSIUM - SERUM 4.1 mmol/L (3.5-5.1); PROTEIN - SERUM 7.7 g/dL (6.4-8.2)
[2018-06-25 17:25] LABS: APPEARANCE CLEAR (CLEAR); BILIRUBIN NEGATIVE (NEGATIVE); COLOR YELLOW (YELLOW); GLUCOSE 250 mg/dL (NEGATIVE); KETONE NEGATIVE (NEGATIVE); NITRITE NEGATIVE (NEGATIVE); PROTEIN NEGATIVE (NEGATIVE); SPECIFIC GRAVITY 1.015 (1.005-1.020); UROBILINOGEN NORMAL (NORMAL)
[2018-06-25] MEDS ORDERED: PHENERGAN DM SYR5 ML PO (18:10)
[2018-06-25 18:41] VITALS: BP 108/74
== END 2018-06-25 18:44 | disposition home or self-care (01) ==
LOC: D.ER 13:39
PROVIDERS: Emergency Medicine
DX: R68.83 Chills (without fever) (principal); M79.10 Myalgia, unspecified site; E11.9 Type 2 diabetes mellitus without complications; Z79.4 Long term (current) use of insulin; R35.0 Frequency of micturition; K21.9 Gastro-esophageal reflux disease without esophagitis

== ENCOUNTER → 2018-08-21 08:50 | Outpatient (CLI) | payer MEDICARE ==
[2018-06-25 14:16] VITALS: BMI 44.8
[~2018-08-21 08:50] MED LIST changes: +PEPCID40 MG PO; +PHENERGAN DM SYR5 ML PO
[2018-08-24 05:40] LABS: IMMUNOGLOBULIN E 57 IU/mL (0-100)
== END | disposition home or self-care (01) ==
LOC: D.RT 08:50
PROVIDERS: Internal Medicine Pulmonary Disease
DX: J45.909 Unspecified asthma, uncomplicated (principal)

== ENCOUNTER 2018-08-21 10:26 | Emergency (ER) | payer MEDICARE ==
[~2018-08-21] VITALS: Ht 175.3 cm; Wt 135.5 kg
[~2018-08-21 10:26] MED LIST changes: -PEPCID40 MG PO
[2018-08-21 10:31] VITALS: Ht 175.3 cm; Wt 135.5 kg
[2018-08-21] MEDS ORDERED: PEPCID40 MG PO (10:33)
[2018-08-21 11:07] LABS: BASOPHILS 0.1 % (0-2); EOSINOPHILS 1.7 % (0-7); HEMATOCRIT 39.5 % (36.0-48.0); HEMOGLOBIN 13.8 g/dL (12-16); IMMATURE GRANULOCYTES 0.7 % (0-5); MCH 28.2 pg (26.0-34.0); MCHC 34.9 g/dL (31.0-37.0); MCV 80.8 fL (80.0-100.0); MEAN PLATELET VOLUME 10.8 fL (7.4-10.4); MONOCYTES 7.9 % (2-11); NEUTROPHILS 62.6 % (40-80); PLATELET COUNT 195 10x3/uL (130-400); RBC 4.89 10x6/uL (4.00-5.40); RDW 14.8 % (11.5-14.5); WBC 7.2 10x3/uL (4.8-10.8)
[2018-08-21 11:14] LABS: APTT 23.9 SECONDS (22.8-39.4); INR 1.11 (0.85-1.17); PROTIME 13.8 SECONDS (11.6-15.0)
[2018-08-21 11:18] LABS: ALBUMIN 3.7 g/dL (3.4-5.0); ALKALINE PHOSPHATASE 119 U/L (46-116); ALT (SGPT) 27 U/L (10-68); BILIRUBIN - TOTAL 0.37 mg/dL (0.2-1.3); CALC OSMOLALITY 278 mosm/kg (275-300); CALCIUM 8.9 mg/dL (8.5-10.1); CARBON DIOXIDE 25.3 mmol/L (21.0-32.0); CHLORIDE - SERUM 99 mmol/L (98-107); GLUCOSE 279 mg/dL (74-106); POTASSIUM - SERUM 3.7 mmol/L (3.5-5.1); PROTEIN - SERUM 7.7 g/dL (6.4-8.2); SODIUM 135 mmol/L (136-145); UREA NITROGEN 9 mg/dL (7-18); eGFR NON AFRICAN AMERICAN 67 mL/min (90-120)
[2018-08-21 11:29] LABS: C-REACTIVE PROTEIN 1.1 mg/dL (0.0-0.9); CKMB 0.2 U/L (0.0-3.6); CREATINE KINASE 74 UL (21-215)
[2018-08-21 11:30] LABS: TROPONIN-I < 0.017 ng/mL (0.000-0.060)
[2018-08-21 12:24] VITALS: BP 108/64
== END 2018-08-21 12:25 | disposition home or self-care (01) ==
LOC: D.ER 10:26
PROVIDERS: Emergency Medicine
DX: R06.00 Dyspnea, unspecified (principal); R07.89 Other chest pain; Z86.711 Personal history of pulmonary embolism; E11.9 Type 2 diabetes mellitus without complications; Z79.4 Long term (current) use of insulin

== ENCOUNTER 2019-03-08 22:34 | Emergency (ER) | payer MEDICARE ==
[~2019-03-08] VITALS: Ht 175.3 cm; Wt 132.7 kg
[~2019-03-08 22:34] MED LIST changes: +PEPCID40 MG PO
[2019-03-08 22:37] VITALS: Ht 175.3 cm; Wt 132.7 kg
[2019-03-08 23:19] LABS: BASOPHILS 0.2 % (0-2); EOSINOPHILS 1.4 % (0-7); HEMATOCRIT 42.2 % (36.0-48.0); HEMOGLOBIN 14.7 g/dL (12-16); IMMATURE GRANULOCYTES 0.9 % (0-5); LYMPHOCYTES 41.3 % (15-50); MCH 29.8 pg (26.0-34.0); MCHC 34.8 g/dL (31.0-37.0); MCV 85.4 fL (80.0-100.0); MEAN PLATELET VOLUME 10.2 fL (7.4-10.4); MONOCYTES 5.4 % (2-11); NEUTROPHILS 50.8 % (40-80); RBC 4.94 10x6/uL (4.00-5.40); WBC 8.5 10x3/uL (4.8-10.8)
[2019-03-08 23:24] LABS: PLATELET COUNT 252 10x3/uL (130-400)
[2019-03-08 23:25] LABS: APPEARANCE HAZY (CLEAR); BACTERIA FEW /hpf (NONE SEEN); BILIRUBIN NEGATIVE (NEGATIVE); COLOR YELLOW (YELLOW); EPITHELIAL CELLS RARE /hpf (0-5); GLUCOSE NEGATIVE (NEGATIVE); KETONE SMALL mg/dL (NEGATIVE); NITRITE NEGATIVE (NEGATIVE); PROTEIN TRACE mg/dL (NEGATIVE); RED CELLS - URINE 0-5 /hpf (0-5); UROBILINOGEN NORMAL (NORMAL)
[2019-03-08 23:26] LABS: HCG URINE NEGATIVE (NEGATIVE)
[2019-03-08 23:29] LABS: APTT 35.5 SECONDS (22.8-39.4)
[2019-03-08 23:30] LABS: D-DIMER-QUANTITATIVE 0.32 ug/mLFEU (0.20-0.54)
[2019-03-08 23:33] LABS: ALBUMIN 3.8 g/dL (3.4-5.0); ALKALINE PHOSPHATASE 107 U/L (46-116); ALT (SGPT) 28 U/L (10-68); BILIRUBIN - TOTAL 0.49 mg/dL (0.2-1.3); CALC OSMOLALITY 280 mosm/kg (275-300); CALCIUM 9.3 mg/dL (8.5-10.1); CARBON DIOXIDE 26.8 mmol/L (21.0-32.0); CHLORIDE - SERUM 103 mmol/L (98-107); CREATININE - SERUM 0.9 mg/dL (0.6-1.3); POTASSIUM - SERUM 3.5 mmol/L (3.5-5.1); SODIUM 140 mmol/L (136-145); UREA NITROGEN 13 mg/dL (7-18); eGFR NON AFRICAN AMERICAN 75 mL/min (90-120)
[2019-03-08 23:33] LABS: UDS - AMPHET NEGATIVE QUAL (NEGATIVE); UDS - BARB NEGATIVE QUAL (NEGATIVE); UDS - BENZO POSITIVE QUAL (NEGATIVE); UDS - COCAINE NEGATIVE QUAL (NEGATIVE); UDS - OPIATE NEGATIVE QUAL (NEGATIVE); UDS - PCP NEGATIVE QUAL (NEGATIVE); UDS - THC POSITIVE QUAL (NEGATIVE)
[2019-03-08 23:38] LABS: GLUCOSE 126 mg/dL (74-106)
[2019-03-08 23:39] VITALS: BP 121/84
[2019-03-08 23:41] LABS: PRO BNP 31 pg/mL (0-125); THYROID STIMULATING HORMONE 3.65 uIU/mL (0.36-3.74)
[2019-03-08 23:42] LABS: TROPONIN-I < 0.017 ng/mL (0.000-0.060)
== END 2019-03-08 23:39 | disposition home or self-care (01) ==
LOC: D.ER 22:34
PROVIDERS: Family Medicine
DX: R06.00 Dyspnea, unspecified (principal); Z86.718 Personal history of other venous thrombosis and embolism; Z79.01 Long term (current) use of anticoagulants; E11.9 Type 2 diabetes mellitus without complications; F32.9 Major depressive disorder, single episode, unspecified; K21.9 Gastro-esophageal reflux disease without esophagitis

== ENCOUNTER 2019-04-24 13:53 | Emergency (ER) | payer MEDICARE ==
[~2019-04-24] VITALS: Ht 175.3 cm; Wt 131.8 kg
[2019-04-24 14:17] VITALS: Ht 175.3 cm; Wt 131.8 kg
[2019-04-24] MEDS ORDERED: LAMICTAL200 M1 PO (14:20)
[2019-04-24] MEDS ORDERED: LOVENOX120 MG/0.8 SC (14:21)
[2019-04-24] MEDS ORDERED: COUMADIN10 MG PO (14:21)
[2019-04-24 14:45] LABS: BASOPHILS 0.2 % (0-2); EOSINOPHILS 2.5 % (0-7); HEMOGLOBIN 14.8 g/dL (12-16); IMMATURE GRANULOCYTES 0.4 % (0-5); MCHC 35.2 g/dL (31.0-37.0); MCV 85.2 fL (80.0-100.0); MEAN PLATELET VOLUME 10.2 fL (7.4-10.4); MONOCYTES 5.4 % (2-11); NEUTROPHILS 44.5 % (40-80); RBC 4.93 10x6/uL (4.00-5.40); RDW 14.2 % (11.5-14.5); WBC 5.6 10x3/uL (4.8-10.8)
[2019-04-24 14:47] LABS: PLATELET COUNT 167 10x3/uL (130-400)
[2019-04-24 15:08] LABS: ALBUMIN 3.8 g/dL (3.4-5.0); ALKALINE PHOSPHATASE 108 U/L (46-116); ALT (SGPT) 19 U/L (10-68); BILIRUBIN - TOTAL 0.18 mg/dL (0.2-1.3); CALC OSMOLALITY 278 mosm/kg (275-300); CALCIUM 9.6 mg/dL (8.5-10.1); CARBON DIOXIDE 26.1 mmol/L (21.0-32.0); CHLORIDE - SERUM 103 mmol/L (98-107); GLUCOSE 140 mg/dL (74-106); POTASSIUM - SERUM 3.7 mmol/L (3.5-5.1); PROTEIN - SERUM 7.4 g/dL (6.4-8.2); SODIUM 139 mmol/L (136-145); UREA NITROGEN 9 mg/dL (7-18); eGFR NON AFRICAN AMERICAN 66 mL/min (90-120)
[2019-04-24 15:17] LABS: APTT 36.4 SECONDS (22.8-39.4); INR 2.18 (0.85-1.17); PROTIME 23.5 SECONDS (11.6-15.0)
[2019-04-24 15:18] LABS: D-DIMER-QUANTITATIVE < 0.27 ug/mLFEU (0.20-0.54)
[2019-04-24 15:20] LABS: CKMB 0.2 U/L (0.0-3.6); CREATINE KINASE 64 UL (21-215); TROPONIN-I < 0.017 ng/mL (0.000-0.060)
[2019-04-24] MEDS ORDERED: ULTRAM50 MG PO (17:00)
[2019-04-24 17:13] VITALS: BP 115/82
== END 2019-04-24 17:14 | disposition home or self-care (01) ==
LOC: D.ER 13:53
PROVIDERS: Family Medicine
DX: I27.82 Chronic pulmonary embolism (principal); R07.9 Chest pain, unspecified

== ENCOUNTER 2019-05-26 13:02 | Emergency (ER) | payer MEDICARE ==
[~2019-05-26] VITALS: Ht 175.3 cm; Wt 134.1 kg
[~2019-05-26 13:02] MED LIST changes: +LAMICTAL200 M1 PO; +ULTRAM50 MG PO
[2019-05-26 13:08] VITALS: Ht 175.3 cm; Wt 134.1 kg
[2019-05-26] MEDS ORDERED: BREO ELLIPTA 21 EACH (13:14)
[2019-05-26 13:33] LABS: BASOPHILS 0.3 % (0-2); EOSINOPHILS 2.1 % (0-7); HEMATOCRIT 40.7 % (36.0-48.0); HEMOGLOBIN 14.2 g/dL (12-16); IMMATURE GRANULOCYTES 0.6 % (0-5); LYMPHOCYTES 31.7 % (15-50); MCH 29.8 pg (26.0-34.0); MCHC 34.9 g/dL (31.0-37.0); MCV 85.5 fL (80.0-100.0); MEAN PLATELET VOLUME 10.2 fL (7.4-10.4); MONOCYTES 6.3 % (2-11); PLATELET COUNT 178 10x3/uL (130-400); RBC 4.76 10x6/uL (4.00-5.40); RDW 13.9 % (11.5-14.5); WBC 6.7 10x3/uL (4.8-10.8)
[2019-05-26 13:48] LABS: ALBUMIN 3.5 g/dL (3.4-5.0); ALKALINE PHOSPHATASE 105 U/L (46-116); ALT (SGPT) 20 U/L (10-68); CALC OSMOLALITY 278 mosm/kg (275-300); CALCIUM 9.3 mg/dL (8.5-10.1); CARBON DIOXIDE 26.5 mmol/L (21.0-32.0); CHLORIDE - SERUM 104 mmol/L (98-107); CREATININE - SERUM 1.1 mg/dL (0.6-1.3); GLUCOSE 131 mg/dL (74-106); PROTEIN - SERUM 7.3 g/dL (6.4-8.2); SODIUM 138 mmol/L (136-145); UREA NITROGEN 16 mg/dL (7-18); eGFR NON AFRICAN AMERICAN 59 mL/min (90-120)
[2019-05-26 13:52] LABS: APTT 21.8 SECONDS (22.8-39.4); INR 1.15 (0.85-1.17); PROTIME 14.2 SECONDS (11.6-15.0)
[2019-05-26 13:53] LABS: D-DIMER-QUANTITATIVE 0.38 ug/mLFEU (0.20-0.54)
[2019-05-26 13:59] LABS: CKMB 0.1 U/L (0.0-3.6); CREATINE KINASE 74 UL (21-215); PRO BNP 214 pg/mL (0-125); TROPONIN-I < 0.017 ng/mL (0.000-0.060)
[2019-05-26 15:12] VITALS: BP 148/76
== END 2019-05-26 15:13 | disposition home or self-care (01) ==
LOC: D.ER 13:02
PROVIDERS: Family Medicine
DX: R06.00 Dyspnea, unspecified (principal); F41.9 Anxiety disorder, unspecified

== ENCOUNTER 2019-09-03 19:35 | Emergency (ER) | payer MEDICARE ==
[~2019-09-03] VITALS: Ht 175.3 cm; Wt 131.8 kg
[~2019-09-03 19:35] MED LIST changes: +BREO ELLIPTA 21 EACH
[2019-09-03 19:42] VITALS: Ht 175.3 cm; Wt 131.8 kg
[2019-09-03 20:28] LABS: BASOPHILS 0.3 % (0-2); EOSINOPHILS 2.8 % (0-7); HEMATOCRIT 42.1 % (36.0-48.0); HEMOGLOBIN 14.4 g/dL (12-16); IMMATURE GRANULOCYTES 0.6 % (0-5); LYMPHOCYTES 31.1 % (15-50); MCH 30.6 pg (26.0-34.0); MCHC 34.2 g/dL (31.0-37.0); MCV 89.4 fL (80.0-100.0); MEAN PLATELET VOLUME 10.2 fL (7.4-10.4); MONOCYTES 5.9 % (2-11); NEUTROPHILS 59.3 % (40-80); PLATELET COUNT 196 10x3/uL (130-400); RBC 4.71 10x6/uL (4.00-5.40); RDW 14.1 % (11.5-14.5); WBC 6.8 10x3/uL (4.8-10.8)
[2019-09-03 20:40] LABS: APTT 37.5 SECONDS (22.8-39.4); INR 2.51 (0.85-1.17); PROTIME 26.4 SECONDS (11.6-15.0)
[2019-09-03 20:42] LABS: D-DIMER-QUANTITATIVE < 0.27 ug/mLFEU (0.20-0.54)
[2019-09-03 21:14] LABS: CALC OSMOLALITY 282 mosm/kg (275-300); CALCIUM 9.4 mg/dL (8.5-10.1); CHLORIDE - SERUM 103 mmol/L (98-107); CREATININE - SERUM 1.1 mg/dL (0.6-1.3); GLUCOSE 168 mg/dL (74-106); POTASSIUM - SERUM 3.7 mmol/L (3.5-5.1); SODIUM 139 mmol/L (136-145); UREA NITROGEN 14 mg/dL (7-18); eGFR NON AFRICAN AMERICAN 59 mL/min (90-120)
[2019-09-03 21:22] LABS: ALBUMIN 3.6 g/dL (3.4-5.0); ALT (SGPT) 29 U/L (10-68); BILIRUBIN - TOTAL 0.19 mg/dL (0.2-1.3); PROTEIN - SERUM 7.4 g/dL (6.4-8.2)
[2019-09-03 21:42] LABS: ALKALINE PHOSPHATASE 134 U/L (46-116); CKMB 0.4 U/L (0.0-3.6); CREATINE KINASE 91 UL (21-215); TROPONIN-I < 0.017 ng/mL (0.000-0.060)
[2019-09-03 22:05] VITALS: BP 133/80
== END 2019-09-03 22:05 | disposition home or self-care (01) ==
LOC: D.ER 19:35
PROVIDERS: Family Medicine
DX: R09.1 Pleurisy (principal); Z95.5 Presence of coronary angioplasty implant and graft; R76.0 Raised antibody titer

== ENCOUNTER 2021-03-14 17:40 | Emergency (ER) | payer MEDICARE ==
[~2021-03-14] VITALS: Ht 175.3 cm; Wt 129.5 kg
[2021-03-14 17:48] VITALS: BP 167/96; Ht 175.3 cm; Wt 129.5 kg
[2021-03-14 18:44] LABS: BASOPHILS 0.7 % (0-2); EOSINOPHILS 1.4 % (0-7); HEMATOCRIT 43.8 % (36.0-48.0); HEMOGLOBIN 15.2 g/dL (12-16); MCH 31.3 pg (26.0-34.0); MCHC 34.7 g/dL (31.0-37.0); MCV 90.3 fL (80.0-100.0); MEAN PLATELET VOLUME 8.7 fL (7.4-10.4); MONOCYTES 7.2 % (2-11); NEUTROPHILS 58.7 % (40-80); PLATELET COUNT 184 10x3/uL (130-400); RBC 4.85 10x6/uL (4.00-5.40); RDW 14.1 % (11.5-14.5); WBC 7.2 10x3/uL (4.8-10.8)
[2021-03-14 18:52] LABS: ANION GAP 11.7 mmol/L (8-16); CALCIUM 9.2 mg/dL (8.5-10.1); CARBON DIOXIDE 27.2 mmol/L (21.0-32.0); CREATININE - SERUM 1.2 mg/dL (0.6-1.3); POTASSIUM - SERUM 3.9 mmol/L (3.5-5.1)
[2021-03-14 18:58] LABS: ALBUMIN 3.9 g/dL (3.4-5.0); BILIRUBIN - TOTAL 0.46 mg/dL (0.2-1.3); PROTEIN - SERUM 7.7 g/dL (6.4-8.2)
== END 2021-03-15 03:10 | disposition left against medical advice (07) ==
LOC: D.ER 17:40
PROVIDERS: Emergency Medicine
DX: R07.9 Chest pain, unspecified (principal)